=== PATIENT | male | born 1965 | race Caucasian/White ===

== ENCOUNTER 2021-03-03 12:06 | Emergency (ER) | payer OTHER, SELFPAY ==
[2021-03-03 12:17] VITALS: BP 170/96; PULSE 78; RESP 16; TEMP 37.1; O2SAT 100
--- NOTE | 2021-03-03 12:28 | ED.URI ---
HPI - URI/Sore Throat General Chief Complaint: Upper Respiratory Infection Stated Complaint: Congestion History of Present Illness HPI Narrative: This is a 55-year-old that comes in complaining of a cough initially his symptoms started approximately 1 week ago. Patient symptoms started with a fever dry cough drainage and body aches. Patient states that fever has went away been gone for approximately 3 days but he still has the cough and it seems to be getting worse. Related Data Allergies Allergy/AdvReac Type Severity Reaction Status Date / Time No Known Allergies Allergy Verified 03/03/21 12:29 Review of Systems Review of Systems: cough and congestion with sore throat All systems reviewed & are unremarkable except as noted in HPI and below PMFSH Comments At time as signature, I have reviewed and agree with nursing past medical, social, surgical and family history. Please see nursing chart for further information. There is no relevant family history pertinent to the presenting complaint. Exam Narrative: GENERAL:Well-appearing, well-nourished, and in no acute distress. HEAD:Normocephalic,. EYES: PERRLA and EOMI. ENT: Nares clear, moderate amount of clear yellow rhinorrhea CHEST: Clear to auscultation. No respiratory distress. HEART: Regular rate and rhythm EXTREMITIES: Normal range of motion. No edema. SKIN: Warm, dry, no rash. NEURO: No focal deficits. Alert and oriented x3. Course Vital Signs Vital signs: Vital Signs Temperature 98.8 F 03/03/21 12:17 Pulse Rate 78 03/03/21 12:17 Respiratory Rate 16 03/03/21 12:17 Blood Pressure 170/96 H 03/03/21 12:17 Pulse Oximetry 100 03/03/21 12:17 Temperature 98.8 F 03/03/21 12:17 Pulse Rate 78 03/03/21 12:17 Respiratory Rate 16 03/03/21 12:17 Blood Pressure 170/96 H 03/03/21 12:17 Pulse Oximetry 100 03/03/21 12:17 MDM - URI/Sore Throat Differential Diagnosis Differential diagnosis: Likely upper respiratory infection, otitis media, sinusitis, viral infection, bronchitis, influenza and pharyngitis Lab Data Labs: Lab Results 03/03/21 Range/Units 12:35 POC SARS CoV-2 Ag Negative (Negative) Discharge Plan Discharge Clinical Impression: Upper respiratory infection, Bronchitis, Hypertension Patient Disposition: Home, Self-Care Condition: Stable Instructions: Antibiotic Form, Hypertension (ED) Additional Instructions: Viral illness may last between 7-12days; antibiotic is NOT recommended at this time. Recommend antihistamine such as Benadryl at night time and Claritin/Zyrtec/Brit during the day Also, recommend symptomatic treatment includes: rest, fluids, and increase humidity of the air at home. Recommend Acetaminophen or nonsteroidal anti-inflammatory agents (NSAIDs) as directed in the bottle to reduce fever and/pain/headache. Avoid smoking/second-hand smoke. Limit visits to areas with large crowds. Please schedule a follow-up visit with your personal physician for further evaluation and treatment within 3-5days. Including recheck and discussion of your blood pressure. If your symptoms persist, change or worsen significantly before you can contact your personal physician then please, without delay, go to the emergency department for further evaluation Your blood pressure was elevated in the clinic today, please follow-up with your regular doctor for further evaluation and monitor for evaluation of hypertension Please [facility] schedule a followup visit with your personal physician with in the next 1-4 weeks for further evaluation and treatment. Also, ask your personal physician to assist you regarding blood pressure. Even blood pressure exceeding 120/80 may indicate pre-hypertension. If your symptoms persist, change or worsen significantly before you can contact your personal physician then please, without delay, go to the emergency department for further evaluation. Prescriptions: New cetirizine [Zyrtec
== END 2021-03-03 13:02 | disposition home or self-care (01) ==
PROVIDERS: Emergency Provider Nurse Practitioner Family
DX: J06.9 Acute upper respiratory infection, unspecified (principal); J40 Bronchitis, not specified as acute or chronic; I10 Essential (primary) hypertension; Z20.822 Contact with and (suspected) exposure to COVID-19
CPT/HCPCS: 87426; 99213; C9803; G0463